=== PATIENT | male | born 1985 | race Caucasian/White ===

== ENCOUNTER 2018-05-20 10:06 | Emergency (ER) | payer BC ==
[2018-05-20] MEDS ORDERED: Lidocaine 2% Viscous Solution 15 ML Cup PO ONE (10:32)
[2018-05-20] MEDS ORDERED: Benzocaine 20% Topical Spray UD MUCMEM ONE (10:32)
--- NOTE | 2018-05-20 10:44 | EDM.PDOC ---
ED HPI GENERAL MEDICAL PROBLEM - General Chief Complaint: ENT Problem Stated Complaint: ORAL ISSUES Time Seen by Provider: 05/20/18 10:09 Source of Information: Reports: Patient History Limitations: Reports: No Limitations - History of Present Illness INITIAL COMMENTS - FREE TEXT/NARRATIVE: HISTORY AND PHYSICAL: History of present illness: Patient is a 32-year-old male who presents to the ED today for screw hardware in his mouth that has been bothering him. He states that the screws were placed when he fractured his jaw and had to have it wired shut. He states that he was supposed to have the screws taken out about a year and a half ago but hasn't taken the time to do it back home [place]. He states that over the past week or 2 is getting progressively worse. He has tried to unscrew them himself with a screwdriver. He states that he has not tried to see any dentist to get these removed and is hoping that we can remove them for him today. He has been eating and drinking appropriately. He denies any fever, chills, chest pain, shortness of breath, or cough. He denies any GI or symptoms. Review of systems: As per history of present illness and below otherwise all systems reviewed and negative. Past medical history: As per history of present illness and as reviewed below otherwise noncontributory. Surgical history: As per history of present illness and as reviewed below otherwise noncontributory. Social history: No reported history of drug or alcohol abuse. Family history: As per history of present illness and as reviewed below otherwise noncontributory. Physical exam: General: Well-developed, well-nourished, 32-year-old male. Alert and oriented and in no acute distress. HEENT: Atraumatic, normocephalic, pupils equal and reactive bilaterally, negative for conjunctival pallor or scleral icterus, mucous membranes moist, there are 4 screws noted in the gumline above #6 #11 and below #27 and 22. Gumline around the screws look pain, and non-erythematous or swollen. throat clear, neck supple, nontender, trachea midline. No drooling or trismus noted. No meningeal signs Lungs: Clear to auscultation, breath sounds equal bilaterally, chest nontender. Heart: S1S2, regular rate and rhythm without overt murmur Abdomen: Soft, nondistended, nontender. Negative for masses or hepatosplenomegaly. Negative for costovertebral tenderness. Pelvis: Stable nontender. Genitourinary: Deferred. Rectal: Deferred. Skin: Intact, warm, dry. No lesions or rashes noted. Extremities: Atraumatic, negative for cords or calf pain. Neurovascular unremarkable. Neuro: Awake, alert, oriented. Cranial nerves II through XII unremarkable. Cerebellum unremarkable. Motor and sensory unremarkable throughout. Exam nonfocal. Notes: The screws appear intact and free of infection. We discussed in great detail the need of follow-up with a local digitizer operator or dentist to get these removed. At this time I can give him topical dental balls and tramadol at night for pain. The local dentist list was provided for him. He offers no other complaints or concerns at this time. Diagnostics: [] Therapeutics: [Dental balls] Impression: [Request for dental hardware removal] Plan: [1. Apply dental balls near area of pain or comfort. Do not swallow as these are cotton. Tylenol and ibuprofen as needed for pain management. You may use the prescribed tramadol for nighttime use. Please do not use this medication while driving or functioning outside of the house as this can cause drowsiness. 2. Please do not attempt to remove the hardware yourself. As we discussed you need to follow-up with a local dentist for definitive care. 3. Return to the ED as needed and as discussed.] Definitive disposition and diagnosis as appropriate pending reevaluation and review of above. Duration: Chronic Oral/Mouth Pain Score (Numeric/FACES): 7 - Related Data Allergies Allergy/AdvReac Type Severity Reaction Status Date / Time No Known Allergies Allergy Verified 05/20/18 10:23 Home Meds: Home Meds traMADol [Ultram] 50 mg PO Q4H PRN #10 tab 05/20/18 [Rx] Past Medical History - Past Health History Medical/Surgical History: Denies Medical/Surgical History - Infectious Disease History Infectious Disease History: Reports: Chicken Pox Social & Family History - Family History Family Medical History: Noncontributory - Tobacco Use Smoking Status *Q: Never Smoker - Recreational Drug Use Recreational Drug Use: No ED ROS ENT - Review of Systems Review Of Systems: ROS reveals no pertinent complaints other than HPI. ED EXAM, ENT - Physical Exam Exam: See Below (see dictation) Course - Vital Signs Last Recorded V/S: Last Vital Signs Temp 96.4 F 05/20/18 10:19 Pulse 105 H 05/20/18 10:19 Resp 18 05/20/18 10:19 BP 136/87 05/20/18 10:19 Pulse Ox 98 05/20/18 10:19 - Orders/Labs/Meds Meds: Medications Discontinued Medications Generic Name Dose Route Start Last Admin Trade Name Freq PRN Reason Stop Dose Admin Benzocaine 2 each 05/20/18 10:32 Hurricaine One 20% MUCMEM 05/20/18 10:33 ONETIME ONE Lidocaine HCl 15 ml 05/20/18 10:32 Xylocaine 2% Viscous PO 05/20/18 10:33 ONETIME ONE Departure - Departure Time of Disposition: 10:45 Disposition: Home, Self-Care 01 Clinical Impression: Pain from implanted hardware Qualifiers: Encounter type: initial encounter Qualified Code(s): T85.848A - Pain due to other internal prosthetic devices, implants and grafts, initial encounter - Discharge Information Prescriptions: traMADol [Ultram] 50 mg PO Q4H PRN #10 tab PRN Reason: Pain Referrals: PCP,None [Primary Care Provider] - Additional Instructions: The following information is given to patients seen in the emergency department who are being discharged to home. This information is to outline your options for follow-up care. We provide all patients seen in our emergency department with a follow-up referral. The need for follow-up, as well as the timing and circumstances, are variable depending upon the specifics of your emergency department visit. If you don't have a primary care physician on staff, we will provide you with a referral. We always advise you to contact your personal physician following an emergency department visit to inform them of the circumstance of the visit and for follow-up with them and/or the need for any referrals to a consulting specialist. The emergency department will also refer you to a specialist when appropriate. This referral assures that you have the opportunity for follow-up care with a specialist. All of these measure are taken in an effort to provide you with optimal care, which includes your follow-up. Under all circumstances we always encourage you to contact your private physician who remains a resource for coordinating your care. When calling for follow-up care, please make the office aware that this follow-up is from your recent emergency room visit. If for any reason you are refused follow-up, please contact the [facility] Emergency Department at and asked to speak to the emergency department charge nurse. [facility] [address] [place] [id number] [1. Apply dental balls near area of pain or comfort. Do not swallow as these are cotton. Tylenol and ibuprofen as needed for pain management. You may use the prescribed tramadol for nighttime use. Please do not use this medication while driving or functioning outside of the house as this can cause drowsiness. 2. Please do not attempt to remove the hardware yourself. As we discussed you need to follow-up with a local dentist for definitive care. 3. Return to the ED as needed and as discussed.]
== END 2018-05-20 11:31 | disposition home or self-care (01) ==
LOC: MW.ED 10:06
DX: T85.848A Pain due to other internal prosthetic devices, implants and grafts, initial encounter (principal)
CPT/HCPCS: 99282; A9270

== ENCOUNTER 2019-09-11 09:40 | Emergency (ER) | payer MEDICAID ==
[2019-09-11] MEDS ORDERED: Ketorolac 30 MG/ML SDV IM ONE (09:56)
--- NOTE | 2019-09-11 10:05 | EDM.PDOC ---
ED HPI GENERAL MEDICAL PROBLEM - General Chief Complaint: Back Pain or Injury Stated Complaint: BACK PAIN Time Seen by Provider: 09/11/19 09:52 Source of Information: Reports: Patient History Limitations: Reports: No Limitations - History of Present Illness INITIAL COMMENTS - FREE TEXT/NARRATIVE: HISTORY AND PHYSICAL: History of present illness: Patient is a 34-year-old male who is familiar to me who presents to the ED today with concern of upper back pain that is chronic. Patient had surgery on an abscess that he states several years ago but since then has had residual back pain of the area of incision site. Patient states he's had multiple imaging since and has found nothing. Patient states the pain in his back is similar to as been chronically but has just increased in flared up. Patient states he has not taken anything for his symptoms. Patient denies any other health history. Patient was seen on 06/21/19 for upper back pain as well but left the ED AMA prior to imaging or diagnostics. Patient states he does not want any imaging or workup today and just wants the medication that he received last time or even "something stronger" then what he had last time. Patient states he has not followed up with a primary care provider or his surgeon since last ED evaluation. Patient denies fever, chills, chest pain, shortness of breath, or cough. Denies headache, neck stiff ness, change in vision, syncope, or near syncope. Denies nausea, vomiting, abdominal pain, diarrhea, constipation, or dysuria. Has not noted any blood in urine or stool. Patient has been eating and drinking appropriately. Review of systems: As per history of present illness and below otherwise all systems reviewed and negative. Past medical history: As per history of present illness and as reviewed below otherwise noncontributory. Surgical history: As per history of present illness and as reviewed below otherwise noncontributory. Social history: See social history for further information Family history: As per history of present illness and as reviewed below otherwise noncontributory. Physical exam: General: Patient is alert, oriented, and in no acute distress. Patient sitting comfortably on exam table. HEENT: Atraumatic, normocephalic, pupils equal and reactive bilaterally, negative for conjunctival pallor or scleral icterus, mucous membranes moist, TMs normal bilaterally, throat clear, neck supple, nontender, trachea midline. No drooling or trismus noted. No meningeal signs. No hot potato voice noted. Lungs: Clear to auscultation, breath sounds equal bilaterally, chest nontender. Heart: S1S2, regular rate and rhythm without overt murmur Abdomen: Soft, nondistended, nontender. Negative for masses or hepatosplenomegaly. Negative for costovertebral tenderness. Pelvis: Stable nontender. Genitourinary: Deferred. Rectal: Deferred. Skin: Intact, warm, dry. No lesions or rashes noted. Extremities: Atraumatic, negative for cords or calf pain. Neurovascular unremarkable. Scarring of the spinous consistent with surgical history. Patient does have moderate pain to palpation of the thoracic spinous processes. Patient does have full range of motion of the cervical and lumbar spine but does have limited of the thoracic due to pain and discomfort. No step-offs, crepitus to palpation of the complete spine. Neuro: Awake, alert, oriented. Cranial nerves II through XII unremarkable. Cerebellum unremarkable. Motor and sensory unremarkable throughout. Exam nonfocal. Notes: Discussed the importance of establishing care with a primary care provider or further setting up an appointment with the surgeon who did his surgery. Voices understanding and is agreeable to plan of care. Denies any further questions or concerns at this time. Diagnostics: PATIENT DECLINES ALL DIAGNOSTICS (XR, labwork offered) Therapeutics: Norflex, Toradol Prescription: Diclofenac, Flexeril Impression: Acute on chronic thoracic back pain Plan: 1. Rest, ice and or heat the affected extremity. You can apply ice and or heat 15 minutes on, 15 minutes off. 2. Take medication as prescribed for pain and discomfort. 3. Establish care with a primary care provider as well as the surgeon who performed the surgery as discussed. Return to the ED as needed and as discussed. Definitive disposition and diagnosis as appropriate pending reevaluation and review of above. upper back Pain Score (Numeric/FACES): 10 - Related Data Allergies Allergy/AdvReac Type Severity Reaction Status Date / Time acetaminophen [From Tylenol] Allergy Rash Verified 09/11/19 09:50 Home Meds: Home Meds . [No Known Home Meds] 09/11/19 [History] Past Medical History - Past Health History Medical/Surgical History: Denies Medical/Surgical History Cardiovascular History: Reports: Other (See Below) Other Cardiovascular History: Endocarditis Gastrointestinal History: Reports: Hepatitis Neurological History: Reports: Other (See Below) Other Neuro History: Intraspinal abscess - Infectious Disease History Infectious Disease History: Reports: Hepatitis C - Past Surgical History Neurological Surgical History: Reports: Other (See Below) Other Neurological Surgeries/Procedures: spinal surgery for infection Musculoskeletal Surgical History: Reports: Other (See Below) Other Musculoskeletal Surgeries/Procedures:: Patient states, "I had bolts in my mouth."; I&D spine 09/15; I&D cervical neck wound 01/14 Social & Family History - Family History Family Medical History: Noncontributory - Tobacco Use Smoking Status *Q: Never Smoker - Caffeine Use Caffeine Use: Reports: Coffee - Recreational Drug Use Recreational Drug Use: No ED ROS GENERAL - Review of Systems Review Of Systems: Comprehensive ROS is negative, except as noted in HPI. ED EXAM, GENERAL - Physical Exam Exam: See Below (See dictation) Course - Vital Signs Last Recorded V/S: Last Vital Signs Temp 96.6 F 09/11/19 09:47 Pulse 127 H 09/11/19 09:47 Resp 18 09/11/19 09:47 BP 147/102 H 09/11/19 09:47 Pulse Ox 98 09/11/19 09:47 - Orders/Labs/Meds Meds: Medications Discontinued Medications Generic Name Dose Route Start Last Admin Trade Name Charito PRN Reason Stop Dose Admin Ketorolac Tromethamine 30 mg 09/11/19 09:56 Toradol IM 09/11/19 09:57 ONETIME ONE Orphenadrine Citrate 60 mg 09/11/19 09:56 Norflex IM 09/11/19 09:57 NOW STA Departure - Departure Time of Disposition: 10:05 Disposition: Home, Self-Care 01 Clinical Impression: Thoracic back pain Qualifiers: Chronicity: acute Back pain laterality: unspecified Qualified Code(s): M54.6 - Pain in thoracic spine Chronic back pain Qualifiers: Back pain location: thoracic back pain Back pain laterality: unspecified Qualified Code(s): M54.6 - Pain in thoracic spine; G89.29 - Other chronic pain - Discharge Information Referrals: PCP,None [Primary Care Provider] - Additional Instructions: The following information is given to patients seen in the emergency department who are being discharged to home. This information is to outline your options for follow-up care. We provide all patients seen in our emergency department with a follow-up referral. The need for follow-up, as well as the timing and circumstances, are variable depending upon the specifics of your emergency department visit. If you don't have a primary care physician on staff, we will provide you with a referral. We always advise you to contact your personal physician following an emergency department visit to inform them of the circumstance of the visit and for follow-up with them and/or the need for any referrals to a consulting specialist. The emergency department will also refer you to a specialist when appropriate. This referral assures that you have the opportunity for follow-up care with a specialist. All of these measure are taken in an effort to provide you with optimal care, which includes your follow-up. Under all circumstances we always encourage you to contact your private physician who remains a resource for coordinating your care. When calling for follow-up care, please make the office aware that this follow-up is from your recent emergency room visit. If for any reason you are refused follow-up, please contact the [facility] Emergency Department at and asked to speak to the emergency department charge nurse. [facility] [address] [place] [address] [place] [address] 1. Rest, ice and or heat the affected area. You can apply ice and or heat 15 minutes on, 15 minutes off. 2. Take medication as prescribed for pain and discomfort. 3. Establish care with a primary care provider as well as the surgeon who performed the surgery as discussed. Return to the ED as needed and as discussed.
== END 2019-09-11 10:08 | disposition home or self-care (01) ==
LOC: MW.ED 09:40
DX: G89.29 Other chronic pain (principal); M54.6 Pain in thoracic spine; Z88.6 Allergy status to analgesic agent
CPT/HCPCS: 96372; 99283; J1885; J2360

== ENCOUNTER 2019-09-29 11:31 | Emergency (ER) | payer MEDICAID ==
--- NOTE | 2019-09-29 11:38 | EDM.PDOC ---
ED HPI GENERAL MEDICAL PROBLEM - General Chief Complaint: Skin Complaint Stated Complaint: FACIAL SWELLING Time Seen by Provider: 09/29/19 11:41 Source of Information: Reports: Patient History Limitations: Reports: No Limitations - History of Present Illness INITIAL COMMENTS - FREE TEXT/NARRATIVE: HISTORY AND PHYSICAL: History of present illness: Patient is a 34-year-old male presents to the ED with complaint of left sided facial swelling. He states he popped a pimple on his cheek 5 days ago. He since has had redness and swelling around it with some purulent drainage. he denies fevers, chills, pain with eye movement. Review of systems: As per history of present illness and below otherwise all systems reviewed and negative. Past medical history: As per history of present illness and as reviewed below otherwise noncontributory. Surgical history: As per history of present illness and as reviewed below otherwise noncontributory. Social history: No reported history of drug or alcohol abuse. Family history: As per history of present illness and as reviewed below otherwise noncontributory. Physical exam: General: Patient sitting comfortably in no acute distress and nontoxic appearing HEENT: 2x2 cm area of erythema and induration to the left cheek. EOM intact. Atraumatic, normocephalic, pupils reactive, negative for conjunctival pallor or scleral icterus, mucous membranes moist, throat clear, neck supple, nontender, trachea midline. No meningeal signs. Lungs: Clear to auscultation, breath sounds equal bilaterally, chest nontender. Heart: S1S2, regular, negative for clicks, rubs, or overt murmur. Abdomen: Soft, nondistended, nontender. Negative for masses or hepatosplenomegaly. Negative for costovertebral tenderness. No rigidity, rebound , guarding. Pelvis: Stable nontender. Genitourinary: Deferred. Rectal: Deferred. Extremities: Atraumatic, negative for cords or calf pain. Neurovascular unremarkable. Neuro: Awake, alert, oriented. Cranial nerves II through XII unremarkable. Cerebellum unremarkable. Motor and sensory unremarkable throughout. Exam nonfocal. Notes: Diagnostics: Declines labs Therapeutics: 1g Rocephin IM Prescriptions: Bactrim Impression: Cellulitis Definitive disposition and diagnosis as appropriate pending reevaluation and review of above. left side of face Pain Score (Numeric/FACES): 9 - Related Data Allergies Allergy/AdvReac Type Severity Reaction Status Date / Time acetaminophen [From Tylenol] Allergy Rash Verified 09/11/19 09:50 Home Meds: Home Meds Sulfamethoxazole/Trimethoprim [Bactrim Ds Tablet] 1 each PO BID 10 Days #20 tablet 09/29/19 [Rx] Past Medical History - Past Health History Medical/Surgical History: Denies Medical/Surgical History Cardiovascular History: Reports: Other (See Below) Other Cardiovascular History: Endocarditis Gastrointestinal History: Reports: Hepatitis Neurological History: Reports: Other (See Below) Other Neuro History: Intraspinal abscess - Infectious Disease History Infectious Disease History: Reports: Hepatitis C - Past Surgical History Neurological Surgical History: Reports: Other (See Below) Other Neurological Surgeries/Procedures: spinal surgery for infection Musculoskeletal Surgical History: Reports: Other (See Below) Other Musculoskeletal Surgeries/Procedures:: Patient states, "I had bolts in my mouth."; I&D spine 09/15; I&D cervical neck wound 01/14 Social & Family History - Family History Family Medical History: Noncontributory - Caffeine Use Caffeine Use: Reports: Coffee ED ROS GENERAL - Review of Systems Review Of Systems: Comprehensive ROS is negative, except as noted in HPI. ED EXAM, SKIN/RASH Exam: See Below (see dictation) Course - Vital Signs Last Recorded V/S: Last Vital Signs Temp 97.9 F 09/29/19 12:10 Pulse 93 09/29/19 12:10 Resp 16 09/29/19 12:10 BP 125/77 09/29/19 12:10 Pulse Ox 96 09/29/19 12:10 - Orders/Labs/Meds Meds: Medications Discontinued Medications Generic Name Dose Route Start Last Admin Trade Name Charito PRN Reason Stop Dose Admin Ceftriaxone Sodium 1 gm 09/29/19 11:52 09/29/19 12:12 Rocephin IM 09/29/19 11:53 1 gm ONETIME ONE Administration Lidocaine HCl 5 ml 09/29/19 12:02 09/29/19 12:12 Xylocaine-Mpf 1% INJECT 09/29/19 12:03 5 ml ONETIME ONE Administration Departure - Departure Time of Disposition: 12:00 Disposition: Home, Self-Care 01 Condition: Good Clinical Impression: Cellulitis - Discharge Information Prescriptions: Sulfamethoxazole/Trimethoprim [Bactrim Ds Tablet] 1 each PO BID 10 Days #20 tablet Instructions: Cellulitis, Adult Referrals: PCP,None [Primary Care Provider] - Forms: ED Department Discharge Additional Instructions: The following information is given to patients seen in the emergency department who are being discharged to home. This information is to outline your options for follow-up care. We provide all patients seen in our emergency department with a follow-up referral. The need for follow-up, as well as the timing and circumstances, are variable depending upon the specifics of your emergency department visit. If you don't have a primary care physician on staff, we will provide you with a referral. We always advise you to contact your personal physician following an emergency department visit to inform them of the circumstance of the visit and for follow-up with them and/or the need for any referrals to a consulting specialist. The emergency department will also refer you to a specialist when appropriate. This referral assures that you have the opportunity for follow-up care with a specialist. All of these measure are taken in an effort to provide you with optimal care, which includes your follow-up. Under all circumstances we always encourage you to contact your private physician who remains a resource for coordinating your care. When calling for follow-up care, please make the office aware that this follow-up is from your recent emergency room visit. If for any reason you are refused follow-up, please contact the [facility] Emergency Department at and asked to speak to the emergency department charge nurse. [facility] [address] [place] [id number] [facility] [address] [place] [phone] Take antibiotic as instructed Follow up with primary care provider Return to ED as needed as discussed
[2019-09-29] MEDS ORDERED: cefTRIAXone 1 GM Vial IM ONE (11:52)
== END 2019-09-29 12:19 | disposition home or self-care (01) ==
LOC: MW.ED 11:31
DX: L03.211 Cellulitis of face (principal); Z88.8 Allergy status to other drugs, medicaments and biological substances
CPT/HCPCS: 96372; 99283; J0696; J2001

== ENCOUNTER 2022-06-05 12:40 | Emergency (ER) | payer SELFPAY | END 2022-06-05 13:10 | disposition home or self-care (01) | LOC: MW.ED 12:40 | DX: Z02.89 Encounter for other administrative examinations (principal); Z88.8 Allergy status to other drugs, medicaments and biological substances; Z86.16 Personal history of COVID-19 | CPT/HCPCS: 99283 ==

== ENCOUNTER 2023-11-15 15:54 | Emergency (ER) | payer BC, MEDICAID ==
[2023-11-15] MEDS ORDERED: SUMAtriptan 6 MG/0.5 ML SDV SUBCUT STA (16:30)
[2023-11-15] MEDS ORDERED: SUMAtriptan 6 MG/0.5 ML SDV ONE (16:38)
== END 2023-11-15 18:04 | disposition home or self-care (01) ==
LOC: MW.ED 15:54
DX: G44.009 Cluster headache syndrome, unspecified, not intractable (principal); Z86.16 Personal history of COVID-19
CPT/HCPCS: 70450; 96372; 99284; J3030; 99283